=== PATIENT | female | born 1995 | race Two or more races ===

== ENCOUNTER 2019-08-31 15:19 | Emergency (ER) | payer MEDICAID ==
[~2019-08-31] VITALS: Ht 160 cm; Wt 77.0 kg
[2019-08-31 19:08] VITALS: BP 116/78
== END 2019-08-31 18:41 | disposition home or self-care (01) ==
LOC: ER 15:19
DX: J02.9 Acute pharyngitis, unspecified (principal); Z20.828 Contact with and (suspected) exposure to other viral communicable diseases; E78.00 Pure hypercholesterolemia, unspecified
CPT/HCPCS: 71045; 99283